=== PATIENT | male | born 1950 | race Caucasian/White ===

== ENCOUNTER 2018-07-11 10:25 | Inpatient (IN) | payer MEDICARE ==
[~2018-07-11] VITALS: Ht 170.2 cm; Wt 100.5 kg
--- NOTE | ~2018-07-11 | EKG ---
[place], [place] ELECTROCARDIOGRAM REPORT NAME: LUIGI GARCES UNIT #: [id number] ROOM: 506 DOCTOR: EPIPHANY DRAFT REPORT BIRTHDATE: [birth year] [facility] Test Date: 2018-07-12 Test Time: 10:34:15 Pat Name: LUIGI GARCES Department: Room: 506 2 Gender: M Karate Black Belt: Ginger Sol : 1950 Requested By: YESSY EVANGELISTA Order Number: [id number] Reading MD: Yessy Evangelista MD Measurements Intervals [place] Rate: 51 P: 40 WI: 203 QRS: -22 QRSD: 103 T: 40 QT: 481 QTc: 444 Interpretive Statements Sinus rhythm Borderline left axis deviation ST elevation, minimal and no change Compared to ECG 07/11/2018 11:53:40 Myocardial infarct finding now present Sinus bradycardia no longer present T-wave abnormality no longer present ST (T wave) deviation still present Electronically Signed On 07-12-2018 14:14:12 PDT by Yessy Evangelista MD CM:EKGRPT:ELECTROCARDIOGRAM REPORT [id number] YESSY EVANGELISTA MD EPIPHANY DRAFT REPORT YESSY EVANGELISTA MD
--- NOTE | ~2018-07-11 | EKG ---
[place], [place] ELECTROCARDIOGRAM REPORT NAME: LUIGI GARCES UNIT #: [id number] ROOM: 506 DOCTOR: HELLEN DRAFT REPORT BIRTHDATE: [birth year] [facility] Test Date: 2018-07-11 Test Time: 11:53:40 Pat Name: LUIGI GARCES Department: Room: 506 Gender: M Hull Molder: Ginger Sol : 1950 Requested By: EDYTA WYNNE Order Number: [id number] Reading MD: Royer Evangelista MD Measurements Intervals [place] Rate: 49 P: 22 ID: 209 QRS: -31 QRSD: 106 T: 66 QT: 451 QTc: 408 Interpretive Statements Sinus bradycardia Left axis deviation Nonspecific T abnormalities, lateral leads Borderline ST elevation, anterior leads Electronically Signed On 07-12-2018 4:28:18 PDT by Royer Evangelista MD CM:EKGRPT:ELECTROCARDIOGRAM REPORT [id number] EDYTA PURDY DRAFT REPORT EDYTA WYNNE DO
--- NOTE | ~2018-07-11 | EKG ---
[place], [place] ELECTROCARDIOGRAM REPORT NAME: LUIGI GARCES UNIT #: [id number] ROOM: 506 DOCTOR: HELLEN DRAFT REPORT BIRTHDATE: [birth year] [facility] Test Date: 2018-07-11 Test Time: 10:43:19 Pat Name: LUIGI GARCES Department: Room: 506 Gender: M Ramp Lead: Ginger Sol : 1950 Requested By: EDYTA WYNNE Order Number: [id number] Reading MD: Royer Evangelista MD Measurements Intervals [place] Rate: 60 P: 30 AL: 210 QRS: -30 QRSD: 102 T: 58 QT: 454 QTc: 454 Interpretive Statements Sinus rhythm Left axis deviation ST elevation, borderline Electronically Signed On 07-11-2018 16:05:20 PDT by Royer Evangelista MD CM:EKGRPT:ELECTROCARDIOGRAM REPORT [id number] EDYTA PURDY DRAFT REPORT EDYTA WYNNE DO
[~2018-07-11 10:25] MED LIST: BACTRIM DS 8001 TA1 PO; BLOOD PRESSURE MED; KEFLEX500 MG PO; PLAVIX75 MG PO; VICODIN 5/500 505 MG PO
[2018-07-11 10:31] VITALS: BP 161/93
[2018-07-11 10:52] LABS: BASO % 0.3 % (0.0-1.0); EOS # 0.2 10*3/uL (0.0-0.4); EOS % 2.3 % (1.0-4.0); HEMATOCRIT 42.3 % (42.0-52.0); HEMOGLOBIN 14.2 g/dl (14.0-18.0); LYMPH # 1.2 10*3/uL (1.3-4.4); LYMPH % 17.9 % (27.0-41.0); MEAN CELL VOLUME 97.5 fl (80.0-94.0); MEAN CORPUSCULAR HGB 32.7 pg (27.0-31.0); MEAN CORPUSCULAR HGB CONC 33.6 g/dl (33.0-37.0); MEAN PLATELET VOLUME 9.7 fl (9.6-12.3); MONO # 0.6 10*3/uL (0.1-1.0); MONO % 8.7 % (3.0-9.0); NEUT # 4.7 10*3/uL (2.3-7.9); NEUT % 70.6 % (47.0-73.0); PLATELET COUNT AUTOMATED 129 10*3/uL (130-400); RED BLOOD COUNT 4.34 10*6/uL (4.50-5.90); WHITE BLOOD COUNT 6.6 10*3/uL (4.8-10.8)
[2018-07-11 11:06] LABS: ACT PARTIAL THROMBO TIME 24.3 SECONDS (20.8-31.5); INTERNATIONAL NORM RATIO 0.9 (2.0-3.5)
[2018-07-11] MEDS ORDERED: AMIODARONE HYD200 MG PO (11:07)
[2018-07-11 11:08] LABS: ALBUMIN 3.4 gm/dl (3.1-4.5); ALKALINE PHOSPHATASE 122 U/L (45-117); BUN 21 mg/dl (7-24); CHLORIDE 107 mmol/L (98-107); CREATININE 1.55 mg/dL (0.70-1.30); LIPASE 187 U/L (73-393); POTASSIUM 4.1 mmol/L (3.5-5.1); SGOT/AST 85 IU/L (3-35); SGPT/ALT 59 U/L (12-78); SODIUM 138 mmol/L (136-145)
[2018-07-11] MEDS ORDERED: AMLODIPINE BESY10 MG PO (11:08)
[2018-07-11] MEDS ORDERED: ASPIRIN325 M2 PO (11:08)
[2018-07-11] MEDS ORDERED: 'CLONIDINE0.1 MG PO (11:09)
[2018-07-11] MEDS ORDERED: COLACE100 MG PO (11:09)
[2018-07-11] MEDS ORDERED: LISINOPRIL40 MG PO (11:10)
[2018-07-11] MEDS ORDERED: COMPETE1 EACH PO (11:11)
[2018-07-11] MEDS ORDERED: TRAZODONE150 MG PO (11:12)
[2018-07-11 11:17] LABS: TROPONIN I < 0.015 ng/ml (<0.045)
[2018-07-11 12:35] VITALS: BP 170/102
[2018-07-11 12:58] VITALS: BP 158/98
[2018-07-11 13:15] VITALS: BP 180/78
[2018-07-11 16:00] VITALS: BP 178/88
[2018-07-12 01:18] VITALS: BP 129/79
[2018-07-12 05:58] LABS: BASO % 0.4 % (0.0-1.0); EOS # 0.2 10*3/uL (0.0-0.4); EOS % 3.2 % (1.0-4.0); HEMATOCRIT 38.9 % (42.0-52.0); HEMOGLOBIN 13.1 g/dl (14.0-18.0); LYMPH # 1.5 10*3/uL (1.3-4.4); LYMPH % 26.1 % (27.0-41.0); MEAN CELL VOLUME 97.5 fl (80.0-94.0); MEAN CORPUSCULAR HGB 32.8 pg (27.0-31.0); MEAN CORPUSCULAR HGB CONC 33.7 g/dl (33.0-37.0); MEAN PLATELET VOLUME 9.8 fl (9.6-12.3); MONO # 0.3 10*3/uL (0.1-1.0); MONO % 6.1 % (3.0-9.0); NEUT # 3.6 10*3/uL (2.3-7.9); NEUT % 63.8 % (47.0-73.0); PLATELET COUNT AUTOMATED 128 10*3/uL (130-400); RED BLOOD COUNT 3.99 10*6/uL (4.50-5.90); WHITE BLOOD COUNT 5.6 10*3/uL (4.8-10.8)
[2018-07-12 06:20] LABS: CREATININE 1.59 mg/dL (0.70-1.30); FREE T4 1.51 ng/dl (0.76-1.46); PHOSPHOROUS 3.4 mg/dL (2.5-4.9); POTASSIUM 4.2 mmol/L (3.5-5.1)
[2018-07-12 06:27] LABS: THYROID STIM HORMONE (HS) 1.09 uIU/ml (0.358-4.75)
[2018-07-12 08:00] VITALS: BP 169/76
[2018-07-12 08:07] LABS: VITAMIN D, 25-HYDROXY 14.8 ng/mL (30-100)
[2018-07-12 12:00] VITALS: BP 137/84
[2018-07-12 16:00] VITALS: BP 148/67
[2018-07-12] MEDS ORDERED: PROAIR HFA8.5 GM INH (19:38)
[2018-07-12 20:00] VITALS: BP 116/90
[2018-07-13] VITALS: BP 144/79
== END 2018-07-13 12:40 | disposition home or self-care (01) | DRG 206 ==
LOC: ED 10:25 → EDSEX 10:33 → ED 10:33 → EDHOLD 12:14 → 5E 12:14
PROVIDERS: Emergency Medicine; Internal Medicine
PROC: 4A02XM4 Measurement of Cardiac Total Activity, External Approach (ICD-10-PCS; principal; 2018-07-12)
PROC: 3E073KZ Introduction of Other Diagnostic Substance into Coronary Artery, Percutaneous Approach (ICD-10-PCS; principal; 2018-07-12)
DX: M94.0 Chondrocostal junction syndrome [Tietze] (principal); I13.0 Hypertensive heart and chronic kidney disease with heart failure and stage 1 through stage 4 chronic kidney disease, or unspecified chronic kidney disease; K21.9 Gastro-esophageal reflux disease without esophagitis; R94.31 Abnormal electrocardiogram [ECG] [EKG]; R94.5 Abnormal results of liver function studies; R74.8 Abnormal levels of other serum enzymes; R73.9 Hyperglycemia, unspecified; E66.9 Obesity, unspecified; F12.10 Cannabis abuse, uncomplicated; I48.91 Unspecified atrial fibrillation; I50.9 Heart failure, unspecified; N18.3 Chronic kidney disease, stage 3 (moderate); R00.1 Bradycardia, unspecified; I48.0 Paroxysmal atrial fibrillation; J44.9 Chronic obstructive pulmonary disease, unspecified; Z90.49 Acquired absence of other specified parts of digestive tract; Z86.73 Personal history of transient ischemic attack (TIA), and cerebral infarction without residual deficits; Z84.89 Family history of other specified conditions; Z88.6 Allergy status to analgesic agent; Z79.899 Other long term (current) drug therapy; Z79.82 Long term (current) use of aspirin; Z80.8 Family history of malignant neoplasm of other organs or systems; Z68.34 Body mass index [BMI] 34.0-34.9, adult

== ENCOUNTER 2019-10-09 12:29 | Inpatient (IN) | payer OTHER ==
[~2019-10-09] VITALS: Ht 170 cm; Wt 114.3 kg
[2019-10-09] VITALS (7 sets, daily range): BP systolic 140–177; BP diastolic 78–105
[~2019-10-09 12:29] MED LIST changes: +'CLONIDINE0.1 MG PO; +AMIODARONE HYD200 MG PO; +AMLODIPINE BESY10 MG PO; +ASPIRIN325 M2 PO; +BUSPIRONE10 MG PO; +COLACE100 MG PO; +COMPETE1 EACH PO; +LISINOPRIL40 MG PO; +PROAIR HFA8.5 GM INH; +SYMB160 INH; +TRAZODONE150 MG PO
[2019-10-09 13:49] LABS: BILIRUBIN NEGATIVE (NEGATIVE); BLOOD NEGATIVE (NEGATIVE); CLARITY CLEAR (CLEAR); COLOR YELLOW (YELLOW); GLUCOSE NEGATIVE (NEGATIVE); KETONE NEGATIVE (NEGATIVE); LEUKO ESTERASE NEGATIVE (NEGATIVE); NITRITE NEGATIVE (NEGATIVE); SPECIFIC GRAVITY 1.015 (1.005-1.030); UROBILINOGEN 0.2 E.U./dl (0.2-1.0)
[2019-10-09 13:53] LABS: BASO % 0.5 % (0.0-1.0); EOS # 0.1 10*3/uL (0.0-0.4); EOS % 1.9 % (1.0-4.0); HEMATOCRIT 42.9 % (42.0-52.0); HEMOGLOBIN 14.8 g/dl (14.0-18.0); LYMPH % 23.7 % (27.0-41.0); MEAN CELL VOLUME 100.9 fl (80.0-94.0); MEAN CORPUSCULAR HGB 34.8 pg (27.0-31.0); MEAN CORPUSCULAR HGB CONC 34.5 g/dl (33.0-37.0); MEAN PLATELET VOLUME 10.6 fl (9.6-12.3); MONO # 0.5 10*3/uL (0.1-1.0); MONO % 10.5 % (3.0-9.0); NEUT # 2.7 10*3/uL (2.3-7.9); NEUT % 63.2 % (47.0-73.0); PLATELET COUNT AUTOMATED 101 10*3/uL (130-400); RED BLOOD COUNT 4.25 10*6/uL (4.50-5.90); RED CELL DISTRI WIDTH 13.4 % (0-14.5); WHITE BLOOD COUNT 4.3 10*3/uL (4.8-10.8)
[2019-10-09 14:04] LABS: ACT PARTIAL THROMBO TIME 27.3 SECONDS (20.0-32.1); INTERNATIONAL NORM RATIO 0.9 (2.0-3.5)
[2019-10-09 14:10] LABS: LIPASE 129 U/L (73-393)
[2019-10-09 14:11] LABS: URINE AMPHETAMINES < 1000 (1000ng/ml); URINE BARBITURATES < 200 (200ng/ml); URINE CANNABINOIDS (THC) > 50 (50ng/ml); URINE OPIATES < 300 (300ng/ml)
[2019-10-09 14:12] LABS: URINE BENZODIAZEPINES < 200 (200ng/ml); URINE COCAINE < 300 (300ng/ml); URINE METHADONE < 300 (300ng/ml)
[2019-10-09 14:13] LABS: URINE PHENCYCLIDINE < 25 (25ng/ml)
[2019-10-09 14:21] LABS: ACETAMINOPHEN (TYLENOL) < 5.0 ug/ml (10-30); ETHYL ALCOHOL < 3.0 mg/dl (<3); TROPONIN I < 0.015 ng/ml (<0.045)
[2019-10-09 15:11] LABS: ALBUMIN 3.3 gm/dl (3.1-4.5); CREATININE 1.6 mg/dL (0.70-1.30); POTASSIUM 3.9 mmol/L (3.5-5.1); TOTAL PROTEIN 6.6 gm/dL (6.4-8.2)
--- NOTE | 2019-10-09 16:47 | NUR ---
A 68, admitted to , under the services of MAGALI Mello MD with a diagnosis of BRADYCARDIA, NEAR SYNCOPE. Chief complaint is CONGESTION, CHEST TIGHTNESS, LEFT ARM PAIN. Patient arrived via ambulatory from ER. Monitor applied. Initial assessment completed. Vital signs taken and recorded. DR. YVON JOHNSON,MAGALI notified of admission to the unit. Orders received. See assessment for past medical history, medications and allergies. Patient and/or family oriented to unit. [facility] visitation policy reviewed. Clothing/patient valuable form completed. ABUNDIO PARKER
--- NOTE | 2019-10-09 17:00 | NUR ---
PATIENT TAKEN TO 4TH FLOOR BY THIS NURSE AT THIS TIME. NO CHANGE IN STATUS.
[2019-10-09] MEDS ORDERED: OMEPRAZOLE MAGN20 MG PO (17:10)
[2019-10-09] MEDS ORDERED: Catapres-Tts 20.2 MG PO (17:12)
[2019-10-09] MEDS ORDERED: SENTRY SENIOR1 EAC1 PO (17:13)
--- NOTE | 2019-10-09 17:14 | NUR ---
RESIDENT IN TO SEE PT FOR ADMISSION ASSESSMENT. MED REC UPDATED. RESIDENT INFORMED.
--- NOTE | 2019-10-09 18:38 | NUR ---
CONSULT TO CALLED. AWAITING CALL BACK.
--- NOTE | 2019-10-09 18:52 | NUR ---
FLU VACCINE GIVEN. TOLERATED WELL.
--- NOTE | 2019-10-09 19:05 | NUR ---
ARRIVED ON SHIFT, INTRODUCED TO PATIENT, NO NEEDS VOICED AT THIS TIME, WHITE BOARD UPDATED.
--- NOTE | 2019-10-09 19:09 | NUR ---
CALLED BACK. SAID HE WOULD SEE THE PT IN THE AM.
--- NOTE | 2019-10-09 20:09 | NUR ---
24 HR chart check completed.
--- NOTE | 2019-10-09 21:32 | NUR ---
PATIENT REPORTS HE HAS BEEN QUITE ANXIOUS AND NOT SLEEPING WELL FOR THE LAST FEW DAYS, HE STATES HE HAS BEEN TAKING TRAZADONE FOR SOMETIME WITH MILD EFFECTIVENESS. MEDICATED WITH RESTORIL FOR SLEEP, AND BUSPAR FOR ANXIETY.
--- NOTE | 2019-10-09 22:36 | NUR ---
Godd effect from buspar and restoril given x 1 hour ago, as evidenced by patient resting quietly with eyes closed.
[2019-10-10] VITALS: BP 142/81
--- NOTE | 2019-10-10 02:00 | NUR ---
Patient sleeping. Respirations relaxed and easy. Siderails up x 2. [place]ellocks on, bed in lowest position, call light within reach. RAIN WHEATLEY
--- NOTE | 2019-10-10 02:56 | NUR ---
PATIENT C/O HEADACHE MEDICATED WITH TYLENOL ORDERED PRN.
--- NOTE | 2019-10-10 03:52 | NUR ---
PATIENT OBTAINED GOOD RELIEF FROM TYLENOL GIVEN FOR HEADACHE X 1 HOUR AGO, EVIDENCED BY PATIENT RESTING QUIETLY WITH EYES CLOSED.
[2019-10-10 08:00] VITALS: BP 181/91
[2019-10-10 08:01] LABS: BASO % 0.2 % (0.0-1.0); EOS # 0.2 10*3/uL (0.0-0.4); EOS % 2.8 % (1.0-4.0); HEMATOCRIT 44.2 % (42.0-52.0); HEMOGLOBIN 14.8 g/dl (14.0-18.0); LYMPH # 1.5 10*3/uL (1.3-4.4); MEAN CELL VOLUME 102.3 fl (80.0-94.0); MEAN CORPUSCULAR HGB 34.3 pg (27.0-31.0); MEAN CORPUSCULAR HGB CONC 33.5 g/dl (33.0-37.0); MEAN PLATELET VOLUME 10.7 fl (9.6-12.3); MONO # 0.4 10*3/uL (0.1-1.0); MONO % 7.6 % (3.0-9.0); NEUT # 3.5 10*3/uL (2.3-7.9); PLATELET COUNT AUTOMATED 111 10*3/uL (130-400); RED BLOOD COUNT 4.32 10*6/uL (4.50-5.90); RED CELL DISTRI WIDTH 13.5 % (0-14.5); WHITE BLOOD COUNT 5.6 10*3/uL (4.8-10.8)
[2019-10-10 08:06] LABS: ALBUMIN 3.1 gm/dl (3.1-4.5); CREATININE 1.52 mg/dL (0.70-1.30); PHOSPHOROUS 2.4 mg/dL (2.5-4.9); POTASSIUM 4.2 mmol/L (3.5-5.1); TOTAL PROTEIN 6.4 gm/dL (6.4-8.2)
[2019-10-10 08:11] LABS: FREE T4 1.35 ng/dl (0.76-1.46)
--- NOTE | 2019-10-10 08:11 | NUR ---
IN TO SEE PT. AWARE OF BP 181/91. ROUTINE MEDS GIVEN ORDERED. WILL MONITOR.
[2019-10-10 09:36] VITALS: BP 126/78
--- NOTE | 2019-10-10 09:36 | NUR ---
BP 126/78 FOLLOWING AM MEDS.
[2019-10-10 10:14] LABS: VITAMIN D, 25-HYDROXY 23.6 ng/mL (30-100)
--- NOTE | 2019-10-10 12:30 | NUR ---
OFF FLOOR FOR STRESS TEST.
--- NOTE | 2019-10-10 12:40 | NUR ---
Csr Technician in to talk to patient. Patient states lives at HOME with ALONE. There are 1 steps in the home. Physician: YVON [facility] Home health services: NONE Patient's level of ADLs: INDEPENDENT Patient has working utilities: YES DME: NONE Follow-up physician's appointment after d/c: WILL BE MADE BY HOSPITALIST NURSE DIRECTOR ON DISCHARGE Does patient want to access PORTAL?: NO Discharge plan PT LIVES AT HOME AND IS INDEPENDENT IN HIS CARE. STATES HE LIVES IN AN APARTMENT BUILDING AND IF HE NEEDS ASSISTANCE HE JUST KNOCKS ON HIS [place] OR FLOOR. STATES HE WILL RETURN HOME WHEN MEDICALLY STABLE WITH NO NEEDS. WILL CONTINUE TO FOLLOW. STATES HE WILL HAVE A RIDE HOME.. MASOOD LAZAR
--- NOTE | 2019-10-10 13:33 | NUR ---
INFORMED SIGNED COSENT OBTAINED FOR LEXISCAN STRESS TEST WITH DR OWENS. RESTING EKG SINUS BRADYCARDIA HR 52 BP 142/80. Q WAVE -V2. PULSE OX 96% LUNGS CLEAR. PT COMPLETED ONE MINUTE OF A LEXISCAN PROTOCOL WITH PT RECEIVING LEXISCAN 0.4MG IV OVER 10 SECONDS. NO ARRHYTHMIAS OR ST CHANGES NOTED. PT C/O CHEST HEAVINESS AND HEAD SPINNING WITH INJECTION. LAST RECOVERY HR OF 66 BP 140/84. PT IN STABLE CONDITION. AWAITING NUCLEAR IMAGES.
--- NOTE | 2019-10-10 14:55 | NUR ---
BACK TO ROOM FROM STRESS TEST
--- NOTE | 2019-10-10 16:00 | NUR ---
Patient signed out AMA. Patient encouraged to stay and advised of possible consequences of premature discharge. Physician and kitchen supervisor DOROTHY notified. Patient instructed what to do regarding care post-departure from the hospital; emergency phone numbers provided. Patent was accompanied by SELF. ABUNDIO PARKER
== END 2019-10-10 16:00 | disposition left against medical advice (07) | DRG 392 ==
LOC: ED 12:29 → 4E 15:50 → EDHOLD 15:50 → 4E 16:19
PROVIDERS: Emergency Medicine; Family Medicine; Nurse Practitioner Family; ADMIT Family Medicine
PROC: 3E073KZ Introduction of Other Diagnostic Substance into Coronary Artery, Percutaneous Approach (ICD-10-PCS; principal; 2019-10-10)
PROC: 4A02XM4 Measurement of Cardiac Total Activity, External Approach (ICD-10-PCS; principal; 2019-10-10)
DX: K21.9 Gastro-esophageal reflux disease without esophagitis (principal); I13.0 Hypertensive heart and chronic kidney disease with heart failure and stage 1 through stage 4 chronic kidney disease, or unspecified chronic kidney disease; Q60.2 Renal agenesis, unspecified; N17.9 Acute kidney failure, unspecified; I50.32 Chronic diastolic (congestive) heart failure; J98.11 Atelectasis; R07.89 Other chest pain; R10.9 Unspecified abdominal pain; R55 Syncope and collapse; R00.1 Bradycardia, unspecified; F41.9 Anxiety disorder, unspecified; N18.3 Chronic kidney disease, stage 3 (moderate); I48.0 Paroxysmal atrial fibrillation; E66.9 Obesity, unspecified; D72.819 Decreased white blood cell count, unspecified; F12.90 Cannabis use, unspecified, uncomplicated; R06.09 Other forms of dyspnea; R79.82 Elevated C-reactive protein (CRP); E87.8 Other disorders of electrolyte and fluid balance, not elsewhere classified; J45.909 Unspecified asthma, uncomplicated; T46.2X5A Adverse effect of other antidysrhythmic drugs, initial encounter; T46.5X5A Adverse effect of other antihypertensive drugs, initial encounter; Y92.89 Other specified places as the place of occurrence of the external cause; Z86.73 Personal history of transient ischemic attack (TIA), and cerebral infarction without residual deficits; Z90.49 Acquired absence of other specified parts of digestive tract; Z83.3 Family history of diabetes mellitus; Z80.8 Family history of malignant neoplasm of other organs or systems; Z82.69 Family history of other diseases of the musculoskeletal system and connective tissue; Z84.89 Family history of other specified conditions; Z88.5 Allergy status to narcotic agent; Z79.899 Other long term (current) drug therapy; Z79.82 Long term (current) use of aspirin; Z68.39 Body mass index [BMI] 39.0-39.9, adult

== ENCOUNTER → 2019-12-11 | Outpatient (CLI) | payer OTHER ==
[~2019-12-11] MED LIST changes: +Catapres-Tts 20.2 MG PO; +OMEPRAZOLE MAGN20 MG PO; +SENTRY SENIOR1 EAC1 PO
== END | disposition home or self-care (01) ==
LOC: RAD 15:25
DX: J98.4 Other disorders of lung (principal)

== ENCOUNTER → 2019-12-19 | Outpatient (CLI) | payer OTHER | END | disposition home or self-care (01) | LOC: RAD 08:25 | DX: J98.6 Disorders of diaphragm (principal) ==

== ENCOUNTER 2020-11-04 04:02 | Inpatient (IN) | payer OTHER ==
[~2020-11-04] VITALS: Ht 170.1 cm; Wt 123.9 kg
[2020-11-04] VITALS (7 sets, daily range): BP systolic 127–172; BP diastolic 74–100
[2020-11-04] MEDS ORDERED: HYDROCHLOROTHIA25 M1 PO (05:16)
[2020-11-04] MEDS ORDERED: HYDROXYZINE PAM50 MG PO (05:18)
[2020-11-04 05:27] LABS: ALBUMIN 3.3 gm/dl (3.1-4.5); CREATININE 2.23 mg/dL (0.70-1.30); POTASSIUM 3.4 mmol/L (3.5-5.1); TOTAL PROTEIN 7.2 gm/dL (6.4-8.2)
[2020-11-04 06:02] LABS: BASO % 0.6 % (0.0-1.0); EOS # 0.1 10*3/uL (0.0-0.4); EOS % 1.9 % (1.0-4.0); HEMATOCRIT 44.2 % (42.0-52.0); LYMPH # 1.3 10*3/uL (1.3-4.4); LYMPH % 23.7 % (27.0-41.0); MEAN CELL VOLUME 98.2 fl (80.0-94.0); MEAN CORPUSCULAR HGB 33.6 pg (27.0-31.0); MEAN CORPUSCULAR HGB CONC 34.2 g/dl (33.0-37.0); MEAN PLATELET VOLUME 11.1 fl (9.6-12.3); MONO # 0.5 10*3/uL (0.1-1.0); NEUT # 3.4 10*3/uL (2.3-7.9); NEUT % 62.5 % (47.0-73.0); PLATELET COUNT AUTOMATED 181 10*3/uL (130-400); RED CELL DISTRI WIDTH 13.7 % (0-14.5); WHITE BLOOD COUNT 5.4 10*3/uL (4.8-10.8)
--- NOTE | 2020-11-04 08:17 | NUR ---
PT RESTING IN BED, NO ACTUE DISTRESS NOTED. PT NPO AT THIS TIME. CALL LIGHT IN REACH.
--- NOTE | 2020-11-04 10:49 | NUR ---
PT OFF THE FLOOR FOR US.
[2020-11-04 12:39] LABS: ACT PARTIAL THROMBO TIME 25.7 SECONDS (20.0-32.1); INTERNATIONAL NORM RATIO 0.9 (2.0-3.5)
--- NOTE | 2020-11-04 13:42 | NUR ---
PT REPORTS THE DIAUDID SLUIGHTLY HELPED TAKE THE HELP OFF THE PAIN.
--- NOTE | 2020-11-04 13:46 | NUR ---
RAPID AND SEND OUT COVID SWAB COMPLETED. ORDER FOR PRE SURGICAL PROCEDURE.
--- NOTE | 2020-11-04 14:50 | NUR ---
DEMARIO NARAYANAN NOTIFIED OF POSITIVE COVID RESULTS.
--- NOTE | 2020-11-04 14:50 | NUR ---
Time: 1416 A 69 year old MALE admitted to 5E under services of NICK JEREZ DO. Pt. arrived via from ER. Chief complaint: ABD PAIN. DION NARAYANAN
--- NOTE | 2020-11-04 18:29 | NUR ---
CALLED DR. MÉNDEZ AWARE PT HOME MEDICATIONS NEED ORDERED. HE WILL ORDER.
--- NOTE | 2020-11-04 20:50 | NUR ---
IV started left hand with #22 angiocath after 2 attempts. The IV site was prepped with Chloraprep. Heparin lock attached. Sterile dressing applied. Patient tolerated precedure well. Procedure performed according to [facility] policy & procedure. LESLI MARRERO
--- NOTE | 2020-11-04 21:46 | NUR ---
C/O ABD PAIN RATES PAIN 7 ON PAIN SCALE 0-10. MEDICATED WITH DILAUDID IV PER PRN ORDER, SEE EMAR. CALL LIGHT IN REACH.
--- NOTE | 2020-11-04 22:00 | NUR ---
IVF INFUSING WITH NO PROBLEM. NO C/O AT THIS TIME. CALL LIGHT IN REACH.
[2020-11-05] VITALS (8 sets, daily range): BP systolic 112–164; BP diastolic 61–93
[2020-11-05 06:10] LABS: HEP B CORE AB, IGM Negative (Negative); HEPATITIS B SURFACE AG Negative (Negative); HEPATITIS C VIRUS ANTIBODY <0.1 s/co (0.0-0.9)
[2020-11-05 06:31] LABS: BASO % 0.5 % (0.0-1.0); EOS # 0.1 10*3/uL (0.0-0.4); EOS % 1.8 % (1.0-4.0); HEMATOCRIT 42.3 % (42.0-52.0); LYMPH # 0.9 10*3/uL (1.3-4.4); LYMPH % 20.7 % (27.0-41.0); MEAN CELL VOLUME 100.5 fl (80.0-94.0); MEAN CORPUSCULAR HGB 33.5 pg (27.0-31.0); MEAN CORPUSCULAR HGB CONC 33.3 g/dl (33.0-37.0); MEAN PLATELET VOLUME 10.6 fl (9.6-12.3); MONO # 0.5 10*3/uL (0.1-1.0); MONO % 10.5 % (3.0-9.0); NEUT # 2.9 10*3/uL (2.3-7.9); NEUT % 66.3 % (47.0-73.0); PLATELET COUNT AUTOMATED 159 10*3/uL (130-400); RED BLOOD COUNT 4.21 10*6/uL (4.50-5.90); RED CELL DISTRI WIDTH 14.3 % (0-14.5); WHITE BLOOD COUNT 4.4 10*3/uL (4.8-10.8)
[2020-11-05 06:41] LABS: ALBUMIN 2.9 gm/dl (3.1-4.5); CREATININE 2.42 mg/dL (0.70-1.30); POTASSIUM 3.6 mmol/L (3.5-5.1); TOTAL PROTEIN 6.3 gm/dL (6.4-8.2)
[2020-11-05 06:43] LABS: ACT PARTIAL THROMBO TIME 25.2 SECONDS (20.0-32.1); INTERNATIONAL NORM RATIO 0.9 (2.0-3.5)
[2020-11-05 06:46] LABS: THYROID STIM HORMONE (HS) 1.36 uIU/ml (0.358-4.75)
[2020-11-05 06:48] LABS: FREE T4 1.35 ng/dl (0.76-1.46)
[2020-11-05 07:16] LABS: VITAMIN D, 25-HYDROXY 13.9 ng/mL (30-100)
--- NOTE | 2020-11-05 09:00 | NUR ---
Taker Off Hemp Fiber in to talk to patient. Patient states lives at home with alone. There are one steps in the home. Physician: patricio armenta [facility]acy: [facility] Home health services: none Patient's level of ADLs: INDEPENDENT Patient has working utilities: all working DME: none Follow-up physician's appointment after d/c: will be made by hospitalist nurse director upon discharge Does patient want to access PORTAL?: no Discharge plan discussed with patient by phone, he stated he lives in an apartment alone, he states he is independent and drives, he stated he will return home when discharged and denies any home needs, case management will follow . DOROTHY MENENDEZ
--- NOTE | 2020-11-05 09:15 | NUR ---
PT RESTING IN BED. C/O ABDOMINAL PAIN, RATES PAIN 7 ON PAIN SCALE 0-10. MEDICATED WITH DILAUDID IV PER PRN ORDER, SEE EMAR. PT NPO FOR TEST. CALL LIGHT IN REACH. SEE SHIFT ASSESSMENT.
--- NOTE | 2020-11-05 10:00 | NUR ---
RESTING IN BED WITH EYES CLOSED. AWAKENS EASILY. RESP-EASY AND REGULAR. STATES PAIN MEDICATION WAS EFFECTIVE. IVF INFUSING WITH NO PROBLEM. CALL LIGHT IN REACH.
--- NOTE | 2020-11-05 10:55 | NUR ---
PT ESCORTED VIA WHEELCHAIR TO MRI.
--- NOTE | 2020-11-05 11:15 | NUR ---
CALLED DR. ANDINO MADE AWARE PT UNABLE TO DO MRCP BECAUSE ROTATOR CUFF PROBLEMS AND UNABLE TO HOLD ARMS ABOVE HIS HEAD. PER DR. ANDINO CALL HIM AT 1530 TO SEE IF ABLE TO ADD HIM TODAY AND KEEP NPO
--- NOTE | 2020-11-05 11:52 | NUR ---
CALLED DR. MÉNDEZ MADE AWARE HOME MEDICATIONS NEED ORDERED. PT WAS WORRIED ABOUT THEM. I LET PT KNOW HE WAS NPO
--- NOTE | 2020-11-05 12:00 | NUR ---
RESTING IN BED. NO C/O AT THIS TIME. IVF INFUSING WITH NO PROBLEM. CALL LIGHT IN REACH.
--- NOTE | 2020-11-05 13:40 | NUR ---
PT C/O ABDOMINAL PAIN, RATES PAIN 7 ON PAIN SCALE 0-10. MEDICATED WITH DILAUDID IV PER PRN ORDER, SEE EMAR. CALL LIGHT IN REACH. IVF INFUSING WITH NO PROBLEM.
--- NOTE | 2020-11-05 14:25 | NUR ---
PT RESTING IN BED WITH EYES CLOSED. RESP-EASY AND REGULAR. AWAKENS EASILY. STATES MEDICATION EFFECTIVE. CALL LIGHT IN REACH.
--- NOTE | 2020-11-05 15:40 | NUR ---
CALLED DR. ANDINO HE WILL BE COMING IN FOR ERCP THIS AFTERNOON
--- NOTE | 2020-11-05 17:30 | NUR ---
PT OFF FLOOR FOR PROCEDURE.
--- NOTE | 2020-11-05 19:24 | NUR ---
RESTING IN BED. C/O ABDOMINAL PAIN ALL OVER, RATES PAIN 10 ON PAIN SCALE 0-10. MEDICATED WITH DILAUDID IV PER PRN ORDER, SEE EMAR. CALL LIGHT IN REACH.
--- NOTE | 2020-11-05 20:10 | NUR ---
RESTING IN BED WITH EYES CLOSED, TOLERATED ROUTINE MED WITH NO PROBLEM. NO C/O A TTHIS TIME. CALL LIGHT IN REACH. STATES MEDICATION HELPED. AWAKENS EASILY.
--- NOTE | 2020-11-05 23:00 | NUR ---
REPORT RECEIVED FROM OFFGOING NURSE, ASSUMED CARE OF PATIENT.
--- NOTE | 2020-11-05 23:15 | NUR ---
MEDICATED WITH DILAUDID PER PT REQUEST FOR C/O ABDOMINAL PAIN, RATES PAIN 10 ON PAIN SCALE 0-10. CALL LIGHT IN REACH. IVF INFUSING WITH NO PROBLEM.
--- NOTE | 2020-11-05 23:34 | NUR ---
24 HR chart check completed.
[2020-11-06] VITALS: BP 150/89
--- NOTE | 2020-11-06 03:07 | NUR ---
PATIENT C/O ABD PAIN, 9/10 MEDICATED WITH DILAUDID ORDERED PRN.
--- NOTE | 2020-11-06 04:07 | NUR ---
DILAUDID EFFECTIVE EVIDENCED BY PATIENT RESTING QUIETLY WITH EYES CLOSED, NO S/S OF P[AIN NOTED.
[2020-11-06 06:12] LABS: BASO % 0.4 % (0.0-1.0); EOS # 0.1 10*3/uL (0.0-0.4); EOS % 2.4 % (1.0-4.0); HEMATOCRIT 39.7 % (42.0-52.0); LYMPH # 0.9 10*3/uL (1.3-4.4); LYMPH % 18.9 % (27.0-41.0); MEAN CELL VOLUME 100.3 fl (80.0-94.0); MEAN CORPUSCULAR HGB 33.8 pg (27.0-31.0); MEAN CORPUSCULAR HGB CONC 33.8 g/dl (33.0-37.0); MEAN PLATELET VOLUME 10.7 fl (9.6-12.3); MONO # 0.4 10*3/uL (0.1-1.0); MONO % 8.8 % (3.0-9.0); NEUT # 3.2 10*3/uL (2.3-7.9); NEUT % 69.3 % (47.0-73.0); PLATELET COUNT AUTOMATED 160 10*3/uL (130-400); RED BLOOD COUNT 3.96 10*6/uL (4.50-5.90); RED CELL DISTRI WIDTH 14.3 % (0-14.5); WHITE BLOOD COUNT 4.6 10*3/uL (4.8-10.8)
[2020-11-06 06:17] LABS: ALBUMIN 2.8 gm/dl (3.1-4.5); CREATININE 2.07 mg/dL (0.70-1.30); POTASSIUM 3.8 mmol/L (3.5-5.1); TOTAL PROTEIN 6.4 gm/dL (6.4-8.2)
--- NOTE | 2020-11-06 07:43 | NUR ---
MEDICATED WITH DILAUDID FOR C/O CHEST PAIN, HURTS TO TAKE DEEP BREATH.
[2020-11-06 08:00] VITALS: BP 162/88
--- NOTE | 2020-11-06 08:30 | NUR ---
HENOK HELPED SOME. DR. LAL AWARE OF CHEST PAIN AND ITCHY LEGS.
[2020-11-06 12:00] VITALS: BP 143/73
--- NOTE | 2020-11-06 12:50 | NUR ---
MEDICATED WITH DILAUDID PER ORDER AND REQUEST.
[2020-11-06 16:00] VITALS: BP 160/80
--- NOTE | 2020-11-06 17:11 | NUR ---
MEDICATED WITH PRN DILAUDID PER ORDER AND REQUEST.
[2020-11-06 20:00] VITALS: BP 170/88; BP 180/104
--- NOTE | 2020-11-06 21:03 | NUR ---
NOTIFIED DR. HIGUERA AT THIS TIME OF PATIENTS BLOOD PRESSURE BEING 180/104. NOTIFIED HIM THAT PATIENTS BLOOD PRESSURE SYSTOLICALLY HAS BEEN 160'S. AND THAT THE PATIENT IS GETTING READY TO GET DILAUDID HE STATES HE IS IN A LOT OF PAIN IN THE ABDOMEN. ALSO NOTIFIED HIM THAT THE PATIENT IS FOR ADAMENT ABOUT GETTING HIS INHALERS ESPECIALLY HIS SYMBICORT. STATES NOT HAVING IT IS GIVING HIM A HARD TIME BREATHING. NOTIFIED HIM THAT THE PATIENTS RAPID TEST FOR COVID CAME BACK POSITIVE BUT HIS PCR FOR COVID CAME BACK NEGATIVE AND THEY RESWABBED HIM. HE STATED THAT HE WOULD GIVE HIM HIS INHALERS
--- NOTE | 2020-11-06 21:41 | NUR ---
PRN DILAUDID GIVEN FOR PT COMPLAINTS OF ABDOMINAL PAIN RATING IT 10/10. CALL LIGHT WITHIN REACH, WILL MONITOR
--- NOTE | 2020-11-06 22:11 | NUR ---
NOTIFIED DR. HIGUERA THAT THE PATIENT IS OFF HIS FLUIDS AND THAT HE STATED A NURSE TOOK HIM OFF OF THEM AND STATED THAT HE DIDN'T NEED THEM ANYMORE. HE STATED HE IS OK WITH HAVING THEM OFF BECAUSE HE BELIEVES HIS STOMACH IS PRETTY SWOLLEN. DR. HIGUERA STATED WE CAN KEEP THE FLUIDS OFF UNTIL MORNING.
--- NOTE | 2020-11-06 22:40 | NUR ---
PRN DILAUDID SOMEWHAT EFFECTIVE PER PT
--- NOTE | 2020-11-06 23:43 | NUR ---
24 HR chart check completed.
[2020-11-07] VITALS: BP 152/78
--- NOTE | 2020-11-07 03:00 | NUR ---
PRN DILAUDID GIVEN FOR PT COMPLAINTS OF ABDOMINAL PAIN, RATING IT 8/10. PATIENT ALSO STATED THAT HE TAKES HIS CLONIDINE PATCH EVERY SUNDAY
--- NOTE | 2020-11-07 04:00 | NUR ---
PRN MEDICATION SOMEWHAT EFFECTIVE PER PT
[2020-11-07 06:33] LABS: BASO % 0.4 % (0.0-1.0); EOS # 0.1 10*3/uL (0.0-0.4); EOS % 2.5 % (1.0-4.0); HEMATOCRIT 39.9 % (42.0-52.0); LYMPH % 20.7 % (27.0-41.0); MEAN CORPUSCULAR HGB 33.7 pg (27.0-31.0); MEAN CORPUSCULAR HGB CONC 34.3 g/dl (33.0-37.0); MEAN PLATELET VOLUME 10.7 fl (9.6-12.3); MONO # 0.5 10*3/uL (0.1-1.0); MONO % 9.7 % (3.0-9.0); NEUT # 3.2 10*3/uL (2.3-7.9); NEUT % 66.3 % (47.0-73.0); PLATELET COUNT AUTOMATED 154 10*3/uL (130-400); RED BLOOD COUNT 4.07 10*6/uL (4.50-5.90); RED CELL DISTRI WIDTH 14.1 % (0-14.5); WHITE BLOOD COUNT 4.9 10*3/uL (4.8-10.8)
[2020-11-07 06:52] LABS: ALBUMIN 2.8 gm/dl (3.1-4.5); POTASSIUM 3.7 mmol/L (3.5-5.1)
[2020-11-07 06:56] LABS: CREATININE 1.75 mg/dL (0.70-1.30); TOTAL PROTEIN 6.5 gm/dL (6.4-8.2)
[2020-11-07 08:00] VITALS: BP 175/84
--- NOTE | 2020-11-07 08:13 | NUR ---
PT C/O 7-810 PAIN IN UPPER ABD AND LEFT SIDE. MEDICATED WITH DILAUDID PER ORDER. WILL MONITOR.
--- NOTE | 2020-11-07 09:13 | NUR ---
PER PATIENT, PRN MEDICATION HAS BEEN EFFECTIVE - NO FURTHER COMPLAINTS AT THIS TIME.
[2020-11-07 12:00] VITALS: BP 152/84
--- NOTE | 2020-11-07 12:27 | NUR ---
REQUESTED AND RECEIVED DILAUDID IV PER PRN ORDER FOR COMPLAINTS OF ABD PAIN RATING AN 8. WILL MONITOR FOR EFFECTIVENESS
--- NOTE | 2020-11-07 13:27 | NUR ---
PER PATIENT, PAIN MEDICATION HAS BEEN EFFECTIVE - NO FURTHER COMPLAINTS AT THIS TIME. CALL LIGHT WITHIN REACH.
[2020-11-07 16:00] VITALS: BP 155/90
--- NOTE | 2020-11-07 17:55 | NUR ---
PATIENT C/O INCREASED PAIN IN ABD 07/08 - MEDICATED WITH IV DILAUDID PER ORDER. WILL MONITOR.
[2020-11-07 20:00] VITALS: BP 153/83
--- NOTE | 2020-11-07 21:07 | NUR ---
IV DILAUDID GIVEN FOR C/O UPPER ABDOMINAL PAIN RATED 8/10. WILL MONITOR EFFECTIVENESS. CALL LIGHT IN REACH.
--- NOTE | 2020-11-07 22:00 | NUR ---
EARLIER DILAUDID EFFECTIVE PER PT.
[2020-11-08] VITALS: BP 156/86
--- NOTE | 2020-11-08 01:07 | NUR ---
IV DILAUDID GIVEN FOR C/O UPPER ABDOMINAL PAIN RATED 7/10. WILL MONITOR EFFECTIVENESS. CALL LIGHT IN REACH.
--- NOTE | 2020-11-08 02:00 | NUR ---
NO FURTHER COMPLAINTS OF PAIN FROM PT.
--- NOTE | 2020-11-08 04:07 | NUR ---
PT REQUESTED AND RECEIVED IV DILAUDID FOR UPPER ABD PAIN RATED 8/10. WILL MONITOR. CALL LIGHT IN REACH.
[2020-11-08 06:04] LABS: ALBUMIN 2.9 gm/dl (3.1-4.5); CREATININE 1.69 mg/dL (0.70-1.30); POTASSIUM 3.5 mmol/L (3.5-5.1)
[2020-11-08 06:05] LABS: TOTAL PROTEIN 6.7 gm/dL (6.4-8.2)
[2020-11-08 06:31] LABS: BASO % 0.4 % (0.0-1.0); EOS # 0.1 10*3/uL (0.0-0.4); EOS % 2.7 % (1.0-4.0); HEMATOCRIT 40.6 % (42.0-52.0); LYMPH # 1.2 10*3/uL (1.3-4.4); MEAN CELL VOLUME 98.5 fl (80.0-94.0); MEAN CORPUSCULAR HGB 33.5 pg (27.0-31.0); MEAN PLATELET VOLUME 11.1 fl (9.6-12.3); MONO # 0.5 10*3/uL (0.1-1.0); MONO % 10.4 % (3.0-9.0); NEUT # 3.2 10*3/uL (2.3-7.9); NEUT % 62.1 % (47.0-73.0); PLATELET COUNT AUTOMATED 177 10*3/uL (130-400); RED BLOOD COUNT 4.12 10*6/uL (4.50-5.90); WHITE BLOOD COUNT 5.1 10*3/uL (4.8-10.8)
[2020-11-08 08:00] VITALS: BP 164/82
--- NOTE | 2020-11-08 08:00 | NUR ---
PATIENT RESTING IN BED. CO ABDOMINAL PAIN AND REQUESTING SOMETHING FOR PAIN. DENIES ANY OTHER NEEDS AT THIS TIME. BP 164/82. BP MEDS GIVEN EARLY. ASSESSMENT COMPLETE. RESPS WNL ON ROOM AIR. CALL LIGHT WITHIN REACH.
--- NOTE | 2020-11-08 08:12 | NUR ---
MEDICATED WITH PRN DILAUDID PER PATIENT REQUEST FOR CO ABDOMINAL PAIN RATED A 7/10. WILL ASSESS EFFECITVENESS.
--- NOTE | 2020-11-08 09:00 | NUR ---
case management talks with patient, he states he will return home when discharged. also discussed VNA and he denies any home needs, case management will follow
--- NOTE | 2020-11-08 09:12 | NUR ---
DILAUDID EFFECTIVE FOR ABDOMINAL PAIN PER PATIENT.
--- NOTE | 2020-11-08 09:20 | NUR ---
Shift chart check completed.
[2020-11-08] MEDS ORDERED: VITAMIN D350 MC2 PO (11:03)
--- NOTE | 2020-11-08 12:52 | NUR ---
Discharge instructions reviewed with patient/family. Patient receptive and verbalizes understanding. Follow-up care arranged. Written instructions given to patient/family. IV REMOVED. PANKAJ SANTANA
== END 2020-11-08 12:52 | disposition home or self-care (01) | DRG 444 ==
LOC: ED 04:02 → EDHOLD 06:50 → 4E 06:50 → EDHOLD 06:50 → 5E 13:19 → 4E 15:02
PROVIDERS: Emergency Medicine; Family Medicine; Hospitalist; Internal Medicine; ADMIT Internal Medicine; ATTEND Internal Medicine
PROC: 0F798DZ Dilation of Common Bile Duct with Intraluminal Device, Via Natural or Artificial Opening Endoscopic (ICD-10-PCS; principal; 2020-11-05)
PROC: 0FD98ZX Extraction of Common Bile Duct, Via Natural or Artificial Opening Endoscopic, Diagnostic (ICD-10-PCS; 2020-11-05)
PROC: BF101ZZ Fluoroscopy of Bile Ducts using Low Osmolar Contrast (ICD-10-PCS; 2020-11-05)
PROC: 0DJ08ZZ Inspection of Upper Intestinal Tract, Via Natural or Artificial Opening Endoscopic (ICD-10-PCS; 2020-11-05)
DX: K80.60 Calculus of gallbladder and bile duct with cholecystitis, unspecified, without obstruction (principal); N17.0 Acute kidney failure with tubular necrosis; E87.1 Hypo-osmolality and hyponatremia; I50.32 Chronic diastolic (congestive) heart failure; I13.0 Hypertensive heart and chronic kidney disease with heart failure and stage 1 through stage 4 chronic kidney disease, or unspecified chronic kidney disease; Z68.41 Body mass index [BMI] 40.0-44.9, adult; E87.6 Hypokalemia; R73.9 Hyperglycemia, unspecified; R74.01 Elevation of levels of liver transaminase levels; E80.6 Other disorders of bilirubin metabolism; I48.0 Paroxysmal atrial fibrillation; K57.90 Diverticulosis of intestine, part unspecified, without perforation or abscess without bleeding; K43.9 Ventral hernia without obstruction or gangrene; N18.32 Chronic kidney disease, stage 3b; K29.70 Gastritis, unspecified, without bleeding; J45.909 Unspecified asthma, uncomplicated; F41.9 Anxiety disorder, unspecified; E66.9 Obesity, unspecified; F12.90 Cannabis use, unspecified, uncomplicated; Z20.822 Contact with and (suspected) exposure to COVID-19; Z88.5 Allergy status to narcotic agent; Z83.3 Family history of diabetes mellitus; Z79.899 Other long term (current) drug therapy; Z79.51 Long term (current) use of inhaled steroids; Z86.73 Personal history of transient ischemic attack (TIA), and cerebral infarction without residual deficits; Z90.49 Acquired absence of other specified parts of digestive tract

== ENCOUNTER 2020-11-12 15:28 | Inpatient (IN) | payer OTHER ==
[~2020-11-12] VITALS: Ht 170.1 cm; Wt 117.5 kg
[~2020-11-12 15:28] MED LIST changes: +HYDROCHLOROTHIA25 M1 PO; +HYDROXYZINE PAM50 MG PO; +VITAMIN D350 MC2 PO
[2020-11-12 15:33] VITALS: BP 111/69
[2020-11-12 16:13] LABS: HEMATOCRIT 43.5 % (42.0-52.0); MEAN CELL VOLUME 101.4 fl (80.0-94.0); MEAN CORPUSCULAR HGB 33.8 pg (27.0-31.0); MEAN CORPUSCULAR HGB CONC 33.3 g/dl (33.0-37.0); PLATELET COUNT AUTOMATED 259 10*3/uL (130-400); RED BLOOD COUNT 4.29 10*6/uL (4.50-5.90); RED CELL DISTRI WIDTH 13.9 % (0-14.5); WHITE BLOOD COUNT 10.1 10*3/uL (4.8-10.8)
[2020-11-12 16:27] LABS: CREATININE 2.14 mg/dL (0.70-1.30); POTASSIUM 4.3 mmol/L (3.5-5.1); TOTAL PROTEIN 6.9 gm/dL (6.4-8.2)
[2020-11-12 16:37] LABS: BASOPHILS 1 % (0-1); PLATELET SUFFICIENCY NORMAL (NORMAL); TOTAL CELLS COUNTED 100 #CELLS
[2020-11-12 17:00] VITALS: BP 122/86
[2020-11-12 18:46] VITALS: BP 110/82
[2020-11-12 22:46] VITALS: BP 103/58
[2020-11-13] VITALS (8 sets, daily range): BP systolic 100–159; BP diastolic 63–79
[2020-11-13 00:40] LABS: BILIRUBIN 3+ (Negative); BLOOD Negative (Negative); CLARITY Cloudy (Clear); COLOR Orange (Yellow); GLUCOSE Negative (Negative); KETONE Negative (Negative); LEUKO ESTERASE 1+ (Negative); NITRITE Positive (Negative)
[2020-11-13 01:05] LABS: BACTERIA 2+
[2020-11-13 05:00] LABS: HEMATOCRIT 40.2 % (42.0-52.0); MEAN CELL VOLUME 103.3 fl (80.0-94.0); MEAN CORPUSCULAR HGB 33.2 pg (27.0-31.0); MEAN CORPUSCULAR HGB CONC 32.1 g/dl (33.0-37.0); MEAN PLATELET VOLUME 10.4 fl (9.6-12.3); PLATELET COUNT AUTOMATED 237 10*3/uL (130-400); RED BLOOD COUNT 3.89 10*6/uL (4.50-5.90); RED CELL DISTRI WIDTH 14.3 % (0-14.5); WHITE BLOOD COUNT 27.5 10*3/uL (4.8-10.8)
[2020-11-13 05:37] LABS: ALBUMIN 2.6 gm/dl (3.1-4.5); CREATININE 3.12 mg/dL (0.70-1.30); TOTAL PROTEIN 6.3 gm/dL (6.4-8.2)
[2020-11-13 06:06] LABS: POTASSIUM 5.3 mmol/L (3.5-5.1)
[2020-11-13 07:27] LABS: PLATELET SUFFICIENCY NORMAL (NORMAL); TOTAL CELLS COUNTED 100 #CELLS
[2020-11-14] VITALS: BP 118/72
[2020-11-14 06:14] LABS: BASO % 0.2 % (0.0-1.0); EOS # 0.1 10*3/uL (0.0-0.4); EOS % 0.8 % (1.0-4.0); HEMATOCRIT 35.2 % (42.0-52.0); LYMPH # 0.7 10*3/uL (1.3-4.4); LYMPH % 6.5 % (27.0-41.0); MEAN CELL VOLUME 102.3 fl (80.0-94.0); MEAN CORPUSCULAR HGB 33.7 pg (27.0-31.0); MEAN PLATELET VOLUME 10.4 fl (9.6-12.3); MONO # 0.6 10*3/uL (0.1-1.0); MONO % 6.2 % (3.0-9.0); NEUT # 8.7 10*3/uL (2.3-7.9); NEUT % 85.4 % (47.0-73.0); PLATELET COUNT AUTOMATED 172 10*3/uL (130-400); RED BLOOD COUNT 3.44 10*6/uL (4.50-5.90); RED CELL DISTRI WIDTH 14.4 % (0-14.5); WHITE BLOOD COUNT 10.1 10*3/uL (4.8-10.8)
[2020-11-14 06:49] LABS: ALBUMIN 2.2 gm/dl (3.1-4.5); CREATININE 2.75 mg/dL (0.70-1.30); TOTAL PROTEIN 6.1 gm/dL (6.4-8.2)
[2020-11-14 08:00] VITALS: BP 122/84
[2020-11-14 12:00] VITALS: BP 136/76
[2020-11-14 16:00] VITALS: BP 144/76
[2020-11-14 20:00] VITALS: BP 1557/88; BP 157/88
[2020-11-15] VITALS (7 sets, daily range): BP systolic 128–174; BP diastolic 60–83
[2020-11-15 07:04] LABS: BASO % 0.3 % (0.0-1.0); EOS # 0.1 10*3/uL (0.0-0.4); EOS % 2.1 % (1.0-4.0); HEMATOCRIT 34.8 % (42.0-52.0); LYMPH # 0.8 10*3/uL (1.3-4.4); LYMPH % 11.6 % (27.0-41.0); MEAN CELL VOLUME 100.3 fl (80.0-94.0); MEAN CORPUSCULAR HGB 33.1 pg (27.0-31.0); MEAN PLATELET VOLUME 10.4 fl (9.6-12.3); MONO # 0.5 10*3/uL (0.1-1.0); MONO % 7.2 % (3.0-9.0); NEUT # 5.2 10*3/uL (2.3-7.9); NEUT % 77.7 % (47.0-73.0); PLATELET COUNT AUTOMATED 178 10*3/uL (130-400); RED BLOOD COUNT 3.47 10*6/uL (4.50-5.90); RED CELL DISTRI WIDTH 14.2 % (0-14.5); WHITE BLOOD COUNT 6.6 10*3/uL (4.8-10.8)
[2020-11-15 07:25] LABS: POTASSIUM 4.3 mmol/L (3.5-5.1)
[2020-11-15 07:31] LABS: ALBUMIN 2.2 gm/dl (3.1-4.5); BILIRUBIN, DIRECT 3.7 mg/dL (0.0-0.2); CREATININE 2.17 mg/dL (0.70-1.30); TOTAL PROTEIN 6.3 gm/dL (6.4-8.2)
[2020-11-16] VITALS: BP 152/90
[2020-11-16 08:00] VITALS: BP 178/90
[2020-11-16 12:00] VITALS: BP 180/92
[2020-11-16 13:00] VITALS: BP 162/74
[2020-11-16 16:00] VITALS: BP 146/77
[2020-11-16 20:00] VITALS: BP 148/76
[2020-11-17] VITALS (10 sets, daily range): BP systolic 153–198; BP diastolic 56–90
[2020-11-17 07:41] LABS: ALBUMIN 2.3 gm/dl (3.1-4.5); BASO % 0.5 % (0.0-1.0); CREATININE 1.68 mg/dL (0.70-1.30); EOS # 0.2 10*3/uL (0.0-0.4); EOS % 2.9 % (1.0-4.0); HEMATOCRIT 37.6 % (42.0-52.0); LYMPH # 1.2 10*3/uL (1.3-4.4); LYMPH % 20.2 % (27.0-41.0); MEAN CELL VOLUME 100.8 fl (80.0-94.0); MEAN CORPUSCULAR HGB 33.5 pg (27.0-31.0); MEAN CORPUSCULAR HGB CONC 33.2 g/dl (33.0-37.0); MEAN PLATELET VOLUME 10.3 fl (9.6-12.3); MONO # 0.6 10*3/uL (0.1-1.0); MONO % 9.9 % (3.0-9.0); NEUT # 3.9 10*3/uL (2.3-7.9); NEUT % 65.2 % (47.0-73.0); PLATELET COUNT AUTOMATED 205 10*3/uL (130-400); POTASSIUM 4.5 mmol/L (3.5-5.1); RED BLOOD COUNT 3.73 10*6/uL (4.50-5.90); RED CELL DISTRI WIDTH 13.9 % (0-14.5); WHITE BLOOD COUNT 5.9 10*3/uL (4.8-10.8)
[2020-11-17 07:43] LABS: TOTAL PROTEIN 6.6 gm/dL (6.4-8.2)
[2020-11-18] VITALS: BP 163/81
[2020-11-18 04:00] VITALS: BP 169/82
[2020-11-18 08:00] VITALS: BP 155/76
[2020-11-18 09:34] LABS: CREATININE 1.63 mg/dL (0.70-1.30); POTASSIUM 4.3 mmol/L (3.5-5.1)
[2020-11-18 12:00] VITALS: BP 145/56
[2020-11-18 16:00] VITALS: BP 149/68
[2020-11-18 20:00] VITALS: BP 163/84
[2020-11-19] VITALS (10 sets, daily range): BP systolic 122–180; BP diastolic 73–102
[2020-11-19 07:01] LABS: BASO % 0.5 % (0.0-1.0); EOS # 0.2 10*3/uL (0.0-0.4); EOS % 2.4 % (1.0-4.0); HEMATOCRIT 37.6 % (42.0-52.0); LYMPH # 1.3 10*3/uL (1.3-4.4); LYMPH % 17.1 % (27.0-41.0); MEAN CORPUSCULAR HGB 33.2 pg (27.0-31.0); MEAN CORPUSCULAR HGB CONC 33.2 g/dl (33.0-37.0); MEAN PLATELET VOLUME 9.8 fl (9.6-12.3); MONO # 0.4 10*3/uL (0.1-1.0); MONO % 5.6 % (3.0-9.0); NEUT # 5.6 10*3/uL (2.3-7.9); NEUT % 73.1 % (47.0-73.0); PLATELET COUNT AUTOMATED 240 10*3/uL (130-400); RED BLOOD COUNT 3.76 10*6/uL (4.50-5.90); RED CELL DISTRI WIDTH 13.6 % (0-14.5); WHITE BLOOD COUNT 7.6 10*3/uL (4.8-10.8)
[2020-11-19 07:31] LABS: POTASSIUM 4.4 mmol/L (3.5-5.1)
[2020-11-19 07:37] LABS: ALBUMIN 2.6 gm/dl (3.1-4.5); CREATININE 1.55 mg/dL (0.70-1.30); TOTAL PROTEIN 6.6 gm/dL (6.4-8.2)
[2020-11-20] VITALS: BP 140/74
[2020-11-20 08:00] VITALS: BP 154/84
[2020-11-20 08:20] LABS: ALBUMIN 2.6 gm/dl (3.1-4.5); CREATININE 1.57 mg/dL (0.70-1.30); POTASSIUM 4.6 mmol/L (3.5-5.1); TOTAL PROTEIN 6.5 gm/dL (6.4-8.2)
[2020-11-20 12:00] VITALS: BP 148/81
[2020-11-20 16:00] VITALS: BP 165/86
[2020-11-20] MEDS ORDERED: DULCOLAX5 M1 PO ×2 (17:55→17:56)
[2020-11-20] MEDS ORDERED: METAMUCIL FIBE3.4 GM PO (17:56)
[2020-11-20 20:00] VITALS: BP 154/75
[2020-11-21] VITALS: BP 153/84
[2020-11-21 07:12] LABS: ALBUMIN 2.5 gm/dl (3.1-4.5); BILIRUBIN, DIRECT 1.5 mg/dL (0.0-0.2); TOTAL PROTEIN 6.4 gm/dL (6.4-8.2)
[2020-11-21 08:00] VITALS: BP 165/85
[2020-11-21 12:00] VITALS: BP 150/85
[2020-11-21 16:00] VITALS: BP 155/74
[2020-11-21 20:00] VITALS: BP 178/96
[2020-11-22] VITALS: BP 152/92
[2020-11-22 06:50] LABS: ALBUMIN 2.7 gm/dl (3.1-4.5); BILIRUBIN, DIRECT 1.5 mg/dL (0.0-0.2); CREATININE 1.59 mg/dL (0.70-1.30); POTASSIUM 5.1 mmol/L (3.5-5.1); TOTAL PROTEIN 6.6 gm/dL (6.4-8.2)
[2020-11-22 08:00] VITALS: BP 169/97
[2020-11-22 12:00] VITALS: BP 152/84
[2020-11-22 16:00] VITALS: BP 173/85
[2020-11-22 20:00] VITALS: BP 173/97
[2020-11-23] VITALS: BP 139/83
[2020-11-23 06:24] LABS: BASO % 0.4 % (0.0-1.0); EOS # 0.2 10*3/uL (0.0-0.4); EOS % 2.1 % (1.0-4.0); LYMPH # 1.3 10*3/uL (1.3-4.4); MEAN CELL VOLUME 101.1 fl (80.0-94.0); MEAN CORPUSCULAR HGB 33.6 pg (27.0-31.0); MEAN CORPUSCULAR HGB CONC 33.2 g/dl (33.0-37.0); MEAN PLATELET VOLUME 9.8 fl (9.6-12.3); MONO # 0.5 10*3/uL (0.1-1.0); MONO % 6.7 % (3.0-9.0); NEUT # 5.4 10*3/uL (2.3-7.9); PLATELET COUNT AUTOMATED 286 10*3/uL (130-400); RED BLOOD COUNT 3.66 10*6/uL (4.50-5.90); RED CELL DISTRI WIDTH 13.7 % (0-14.5); WHITE BLOOD COUNT 7.5 10*3/uL (4.8-10.8)
[2020-11-23 06:38] LABS: ALBUMIN 2.7 gm/dl (3.1-4.5); CREATININE 1.73 mg/dL (0.70-1.30); POTASSIUM 4.4 mmol/L (3.5-5.1); TOTAL PROTEIN 6.5 gm/dL (6.4-8.2)
[2020-11-23 12:00] VITALS: BP 144/87
[2020-11-23 20:00] VITALS: BP 153/80
[2020-11-24] VITALS: BP 144/78
[2020-11-24 06:31] LABS: BASO % 0.3 % (0.0-1.0); EOS # 0.1 10*3/uL (0.0-0.4); HEMATOCRIT 37.3 % (42.0-52.0); LYMPH # 1.4 10*3/uL (1.3-4.4); LYMPH % 13.9 % (27.0-41.0); MEAN CELL VOLUME 99.2 fl (80.0-94.0); MEAN CORPUSCULAR HGB 33.5 pg (27.0-31.0); MEAN CORPUSCULAR HGB CONC 33.8 g/dl (33.0-37.0); MEAN PLATELET VOLUME 9.4 fl (9.6-12.3); MONO # 0.6 10*3/uL (0.1-1.0); MONO % 6.2 % (3.0-9.0); NEUT # 7.6 10*3/uL (2.3-7.9); NEUT % 78.1 % (47.0-73.0); PLATELET COUNT AUTOMATED 281 10*3/uL (130-400); RED BLOOD COUNT 3.76 10*6/uL (4.50-5.90); RED CELL DISTRI WIDTH 13.4 % (0-14.5); WHITE BLOOD COUNT 9.8 10*3/uL (4.8-10.8)
[2020-11-24 06:45] LABS: CREATININE 1.92 mg/dL (0.70-1.30); POTASSIUM 4.4 mmol/L (3.5-5.1)
[2020-11-24 06:47] LABS: TOTAL PROTEIN 6.7 gm/dL (6.4-8.2)
[2020-11-24 08:00] VITALS: BP 145/82
[2020-11-24] MEDS ORDERED: HYDRALAZINE HYD50 MG PO ×2 (11:28→11:30)
[2020-11-24] MEDS ORDERED: HYDROCODONE-AC1 EAC1 PO ×2 (11:28→11:30)
[2020-11-24] MEDS ORDERED: ZOFRAN4 MG PO ×2 (11:28→11:30)
[2020-11-24 11:56] VITALS: BP 153/96
== END 2020-11-24 12:56 | disposition home or self-care (01) | DRG 919 ==
LOC: ED 15:28 → EDHOLD 19:14 → 5E 19:14 → 4E 11-22 13:57
PROVIDERS: Internal Medicine; Internal Medicine Gastroenterology; Registered Nurse; Social Worker Clinical; Student in an Organized Health Care Education/Training Program; ADMIT Family Medicine; ATTEND Family Medicine
PROC: 0FPB8DZ Removal of Intraluminal Device from Hepatobiliary Duct, Via Natural or Artificial Opening Endoscopic (ICD-10-PCS; principal; 2020-11-19)
PROC: 0F798DZ Dilation of Common Bile Duct with Intraluminal Device, Via Natural or Artificial Opening Endoscopic (ICD-10-PCS; 2020-11-19)
DX: T85.590A Other mechanical complication of bile duct prosthesis, initial encounter (principal); N17.0 Acute kidney failure with tubular necrosis; K85.10 Biliary acute pancreatitis without necrosis or infection; E87.1 Hypo-osmolality and hyponatremia; E87.2 Acidosis; I50.32 Chronic diastolic (congestive) heart failure; C24.0 Malignant neoplasm of extrahepatic bile duct; Q60.2 Renal agenesis, unspecified; I13.0 Hypertensive heart and chronic kidney disease with heart failure and stage 1 through stage 4 chronic kidney disease, or unspecified chronic kidney disease; E44.0 Moderate protein-calorie malnutrition; Z68.41 Body mass index [BMI] 40.0-44.9, adult; N18.32 Chronic kidney disease, stage 3b; J45.909 Unspecified asthma, uncomplicated; Z20.822 Contact with and (suspected) exposure to COVID-19; K43.2 Incisional hernia without obstruction or gangrene; R73.9 Hyperglycemia, unspecified; R74.01 Elevation of levels of liver transaminase levels; E80.6 Other disorders of bilirubin metabolism; D72.810 Lymphocytopenia; I48.0 Paroxysmal atrial fibrillation; F41.9 Anxiety disorder, unspecified; E66.9 Obesity, unspecified; K57.90 Diverticulosis of intestine, part unspecified, without perforation or abscess without bleeding; K80.20 Calculus of gallbladder without cholecystitis without obstruction; Y83.8 Other surgical procedures as the cause of abnormal reaction of the patient, or of later complication, without mention of misadventure at the time of the procedure; Y92.89 Other specified places as the place of occurrence of the external cause; Z88.5 Allergy status to narcotic agent; Z90.49 Acquired absence of other specified parts of digestive tract; Z79.51 Long term (current) use of inhaled steroids; Z79.899 Other long term (current) drug therapy